=== PATIENT | male | born 1975 | race Caucasian/White ===

== ENCOUNTER → 2021-08-26 09:50 | Outpatient (BNVA) | payer OTHER, SELFPAY | PROVIDERS: PCP Internal Medicine; Visit Provider Physician Assistant Medical | DX: S50.01XA Contusion of right elbow, initial encounter (principal); S40.011A Contusion of right shoulder, initial encounter; S16.1XXA Strain of muscle, fascia and tendon at neck level, initial encounter; W00.0XXA Fall on same level due to ice and snow, initial encounter; M25.551 Pain in right hip | CPT/HCPCS: 70450; 73030; 73080; 99203 ==

== ENCOUNTER → 2021-08-31 08:58 | Outpatient (BNVA) | payer OTHER, SELFPAY | PROVIDERS: PCP Internal Medicine; Visit Provider Internal Medicine | DX: S46.001A Unspecified injury of muscle(s) and tendon(s) of the rotator cuff of right shoulder, initial encounter (principal); W18.30XA Fall on same level, unspecified, initial encounter | CPT/HCPCS: 99213 ==

== ENCOUNTER → 2021-09-10 12:59 | Outpatient (BNVA) | payer OTHER, SELFPAY | PROVIDERS: PCP Internal Medicine; Visit Provider Internal Medicine | DX: S49.91XD Unspecified injury of right shoulder and upper arm, subsequent encounter (principal); W18.30XD Fall on same level, unspecified, subsequent encounter | CPT/HCPCS: 99213 ==

== ENCOUNTER → 2021-09-20 13:13 | Outpatient (BNVA) | payer OTHER, SELFPAY | PROVIDERS: PCP Internal Medicine; Visit Provider Internal Medicine | DX: M25.511 Pain in right shoulder (principal) | CPT/HCPCS: 99213 ==

== ENCOUNTER 2021-09-23 14:55 | Outpatient (REF) | payer OTHER, SELFPAY ==
--- NOTE | ~2021-09-23 | MR_ITS ---
EXAMINATION: MR SHOULDER WITHOUT CONTRAST, RIGHT CLINICAL INFORMATION: Fall, pain. COMPARISON: None TECHNIQUE: MRI of the shoulder without contrast was performed on a high-field scanner. FINDINGS: Motion artifact degrading images, limiting evaluation. ROTATOR CUFF: Mild increased signal in supraspinatus tendon suggesting tendinosis. No focal tendon defect or retraction is seen. Infraspinatus, teres minor is intact. Minimal subscapularis tendinosis. No muscle atrophy or fatty infiltration. BICEPS: Intact CORACOACROMIAL ARCH: The undersurface of the acromion is curved with no subacromial spur. Mild acromioclavicular arthritis. LABRUM/CAPSULE: No definite labral tear is seen. Inferior capsule is intact. GLENOHUMERAL JOINT/MARROW: No suspicious marrow signal changes. Subcortical T2 bright foci, which could reflect cysts or vascularity in the posterior greater tuberosity. No fracture. MR/MR shoulder RT wo con IMPRESSION: Motion artifact degrading images, limiting evaluation. 1. Mild supraspinatus tendinosis. Minimal subscapularis tendinosis. No focal tear is seen. 2. Mild acromioclavicular arthritis. 3. Additional details as above.
== END 2021-09-23 14:56 | disposition home or self-care (01) ==
LOC: HO.MRI 14:55
PROVIDERS: Visit Provider Internal Medicine
DX: M25.511 Pain in right shoulder (principal)
CPT/HCPCS: 73221

== ENCOUNTER → 2021-09-28 09:33 | Outpatient (BNVA) | payer OTHER, SELFPAY | PROVIDERS: PCP Internal Medicine; Visit Provider Internal Medicine | DX: S49.91XD Unspecified injury of right shoulder and upper arm, subsequent encounter (principal); W18.30XD Fall on same level, unspecified, subsequent encounter | CPT/HCPCS: 99213 ==